=== PATIENT | male | born 1975 | race Caucasian/White ===

== ENCOUNTER 2020-05-21 06:31 | Day surgery (SDC) | payer OTHER ==
--- NOTE | 2020-05-18 15:58 | RAD REPORT ---
EXAM DESCRIPTION: RAD - Chest Pa And Lat (2 Views) - 05/18/2020 3:27 pm CLINICAL HISTORY: PRE-OP, pending cholecystectomy COMPARISON: None TECHNIQUE: Frontal and lateral views of the chest were obtained. FINDINGS: The lungs are clear. Small 6 mm density left midlung field is probably a summation of nor mal structures or possibly a small granuloma. Long-term significance is doubtful. No history indicate s increased risk factor. A six-month PA chest film could be performed to assure stability. Heart size is normal and central vasculature is within normal limits. No pleural effusion or pneumo thorax seen. No acute bony finding noted. No aortic abnormality. IMPRESSION: No acute cardiopulmonary process. Small focal density left midlung field is probably summation artifact. If the patient has no old outs clementina chest films to allow comparison, a repeat PA chest film in 6 months could be performed to assure stability.
--- NOTE | 2020-05-19 07:33 | EKG ---
Test Date: 2020-05-18 Test Time: 15:08:56 Leather Sponger: SHIRLEY MEASUREMENT RESULTS: Intervals: Rate: 61 IL: 148 QRSD: 92 QT: 386 QTc: 388 Victoria: P: 66 IL: 148 QRS: 99 T: 64 INTERPRETIVE STATEMENTS: Normal sinus rhythm Rightward axis Borderline ECG No previous ECG available for comparison Electronically Signed On 05-19-20 07:32:33 CDT by Stevan Grant
[2020-05-20 11:42] LABS: Absolute Lymphocytes (CBC) 1.3 K/uL (0.7-4.9); Basophils % 2.2 % (0-1.3); Hematocrit 43.5 % (39.6-49.0); Lymphocytes % 33.3 % (15.3-44.8); RBC Red Blood Cell Count 4.75 M/uL (4.33-5.43)
[2020-05-20 12:03] LABS: Albumin 4.2 g/dL (3.4-5.0); Bilirubin Direct 0.1 mg/dL (0-0.2); Bilirubin Total 0.5 mg/dL (0.2-1.0); Potassium 4.3 mmol/L (3.5-5.1)
--- OUTSIDE RECORDS SUMMARY | 2020-05-21 06:33 | XMS REPORT | Clinical Summary ---
:1975 Author Organization [facility] Address [address] [place] [id number] Care Team Providers Name Role Phone MD Domo Primary Care Provider Allergies No Known Allergies Medications Medication Sig Dispensed Refills Start Date End Date Status traZODone (DESYREL) 100 Take 100 mg by 0 Active MG tablet mouth nightly. Active Problems Not on file Social History Tobacco Use Types Packs/Day Years Used Date Never Smoker Alcohol Use Drinks/Week oz/Week Comments Yes 3 Glasses of wine 1.8 Sex Assigned at Date Recorded Not on file Job Start Date Occupation Industry Not on file Not on file Not on file Travel History Travel Start Travel End No recent travel history available. Last Filed Vital Signs Not on file Plan of Treatment Not on file Results Not on fileafter 05/21/2019 Insurance Payer Benefit Plan / Group Subscriber ID Type Phone A ddress [employer] xxxxxxxxx
--- OUTSIDE RECORDS SUMMARY | 2020-05-21 06:33 | XMS REPORT | Clinical Summary ---
:1975 Author Organization [facility] Address [address] [place] [address] Care Team Providers Name Role Phone Rosendo Oliveros MD Primary Care Provider Allergies Not on File Medications Not on file Active Problems Not on file Social History Tobacco Use Types Packs/Day Years Used Date Never Assessed Sex Assigned at Date Recorded Not on file Job Start Date Occupation Industry Not on file Not on file Not on file Travel History Travel Start Travel End No recent travel history available. Last Filed Vital Signs Not on file Plan of Treatment Health Maintenance Due Date Last Done Comments INFLUENZA VACCINE 06/24/2020 Results Not on fileafter 05/21/2019 Advance Directives For more information, please contact: [phone] Type Date Recorded Patient Chairman & Ceo Explanati on Advance Directives, Living Will and Medical Power of Cigarette Machine Filler
[2020-05-21] MEDS ORDERED: Ringers Lactate 1,000 ML IV ONE (07:01)
[2020-05-21] MEDS ORDERED: CEFOXITIN/SWI 1gm 1 GM/10 ML SYR ONE (07:01)
[2020-05-21] MEDS ORDERED: SCOPOLAMINE HYDROBROMIDE PATCH TD ONE ×2 (07:07→07:10)
[2020-05-21] MEDS ORDERED: MIDAZOLAM HCL 2 MG/2 ML INJ ONE (07:25)
[2020-05-21] MEDS ORDERED: LIDOCAINE 1% MPF 5 ML VIAL ONE (07:25)
[2020-05-21] MEDS ORDERED: FENTANYL CITR 100 MCG/2 ML ONE ×2 (07:25→08:08)
[2020-05-21] MEDS ORDERED: propofoL 200 MG/20 ML VIAL IV ONE (07:25)
[2020-05-21] MEDS ORDERED: ROCURONIUM 50 MG/5 ML VIAL IV ONE (07:25)
[2020-05-21] MEDS ORDERED: dexAMETHasone 10 MG/ML VIAL ONE (08:13)
[2020-05-21] MEDS ORDERED: KETOROLAC 30 MG/ML INJ ONE (08:13)
[2020-05-21] MEDS ORDERED: GLYCOPYRROLATE 0.2 MG/ML SYR ONE ×2 (08:13→08:44)
--- NOTE | 2020-05-21 08:26 | P.BOP ---
Preoperative diagnosis: acute cholecystitis symptomatic cholelithiasis Postoperative diagnosis: same Primary procedure: LAparoscopic cholecystectomy Bender Machine: Emelyn Briggs (Danyel) Estimated blood loss: <10cc Specimen: gb Findings: as above Anesthesia: General Complications: None Transferred to: Recovery Room Condition: Good
[2020-05-21] MEDS ORDERED: ONDANSETRON 4 MG/2 ML VIAL ONE (08:41)
[2020-05-21] MEDS ORDERED: Mastisol Adhesive Liq ONE (08:41)
[2020-05-21] MEDS ORDERED: NEOSTIGMINE 1 MG/ML -5 ML ONE (08:41)
[2020-05-21] MEDS ORDERED: PROMETHAZINE INJ 25 MG/ML AMP ONE (09:03)
--- NOTE | 2020-05-21 09:55 | DS ---
Diagnoses: Acute cholecystitis and symptomatic cholelithiasis. Procedure: Laparoscopic cholecystectomy. Disposition: Home. Activity: As tolerated. No heavy lifting. Discharge Instructions: Follow up in my office in 1 week. Call for appointment at [phone]. Keep a ren dry for 48 hours, then may shower. Keep Steri-Strip intact. Discharge Medications: Include Tylenol No. 3 q.4 hours p.r.n. pain, Bactrim DS p.o. b.i.d., and Zofr an q.6 hours p.r.n. nausea. LONNIE/MISAEL Voice ID: [id number] Report ID: [id number]
[2020-05-21] MEDS ORDERED: CODEINE 30MG/APAP 300MG TAB ONE (10:02)
--- NOTE | 2020-05-21 10:07 | OP ---
Date of Procedure: 05/21/2020 Surgeon: Sanjiv March MD Frame Nailer: GRETCHEN Adan. Preoperative Diagnoses: Acute cholecystitis and symptomatic cholelithiasis. Postoperative Diagnoses: Acute cholecystitis and symptomatic cholelithiasis. Procedure: Laparoscopic cholecystectomy. Estimated Blood Loss: Less than 10 mL. Anesthesia: General plus local. Indications: This is a case of a 44-year-old patient comes to us with above diagnosis. Fully explai saud the benefits, alternatives, and risks of laparoscopic, possible open cholecystectomy, which inclu de but not limited to infection, bleeding, damage to adjacent structures, anesthesia complication, ch oledocholithiasis, bile leak, pancreatitis, [place], and even . He also understands this, may not re lieve the symptoms, he may need more than one surgical intervention. He understood and signed a cons ent. Description Of Procedure: The patient was brought to the operating room, placed in supine position. Anesthesia was done without complication. A time-out was called. Abdomen was prepped and draped in a sterile fashion. Local anesthesia was applied and the incision was carried down to fascia which w as opened under direct vision. Peritoneum was encountered, opened under direct vision. Vicryl #1 pl aced inside the fascia. Luanne trocar was carefully introduced. Pneumoperitoneum was obtained. I p laced 2 more trocars 5-mm each one of them in the epigastric right upper quadrant area under direct v isualization. This allowed me to put a grasper in the fundus of the gallbladder, another grasper in the infundibulum. Retracted the gallbladder in the inferolateral fashion exposing the triangle of Ca lot obtaining critical view. Cystic duct and cystic artery were clearly isolated free circumferentia lly and a connection between those and the gallbladder were clearly identified. I proceeded to ligat e those by using at least 3 clips proximal, 1 clip distal, ligation in middle and same was done with the cystic artery. No bile leak. No bleeding. The gallbladder was removed from liver using Bovie c auterizer and removed from abdominal cavity using EndoCatch through the umbilical incision. The area was inspected once again, no bile leak, no bleeding. At that moment, I proceeded to remove the troc ars under direct vision, deflated pneumoperitoneum. Closed the fascia with #1 Vicryl. Irrigated sub cutaneous tissue, closed with 3-0 chromic and skin in a subcuticular fashion with 3-0 chromic and Gamaliel ri-Strips on top. Sponge count and instrument counts were correct. The patient tolerated the proced ure well. The patient was sent in this way to Recovery in stable condition. LONNIE/MISAEL Voice ID: [id number] Report ID: [id number]
[2020-05-21 10:50] VITALS: O2SAT 99
[2020-05-21 10:52] VITALS: BP 130/75; TEMP 97.5
== END 2020-05-21 10:29 | disposition home or self-care (01) ==
LOC: OR 06:31
PROVIDERS: ATTEND Surgery
PROC: 0FT44ZZ Resection of Gallbladder, Percutaneous Endoscopic Approach (ICD-10-PCS; principal; 2020-05-21 07:30)
DX: K80.12 Calculus of gallbladder with acute and chronic cholecystitis without obstruction (principal); I10 Essential (primary) hypertension; Z20.828 Contact with and (suspected) exposure to other viral communicable diseases; Z82.49 Family history of ischemic heart disease and other diseases of the circulatory system; Z83.3 Family history of diabetes mellitus
CPT/HCPCS: 93005; 85025; 80048; 36415; 82150; 80076; 88304; 83690; 71046; 47562; U0002; J2704; J2250; J3010 ×2; J1100; J2710; J7120; J2405; J2550